=== PATIENT | male | born 1975 | race Caucasian/White ===

== ENCOUNTER 2017-08-30 21:39 | Emergency (ER) | payer BC ==
[~2017-08-30] VITALS: Ht 175.3 cm; Wt 82.0 kg
[2017-08-30 21:42] VITALS: BP 113/76; TEMP 36.8; Ht 175.3 cm; Wt 82.0 kg
--- NOTE | 2017-08-30 22:23 | DIAGNOSTIC IMAGING REPORT ---
R KNEE 3 VIEWS HISTORY: 42 years-old Male RIGHT WITH SUNRISE, EVAL PAIN acute right knee pain COMPARISON: None available TECHNIQUE: 3 views of the right knee FINDINGS: Mild medial soft tissue swelling about the knee without acute fracture, dislocation or significant degenerative changes. Minimal marginal spurring about the patella. Trace joint effusion. No opaque foreign body. IMPRESSION: Trace joint effusion and mild soft tissue swelling without fracture. The above report was generated using voice recognition software. It may contain grammatical, syntax or spelling errors. Electronically signed by: Sean Govea M.D. 08/30/2017 10:21 PM Dictated Date/Time: 08/30/2017 10:20 PM
--- NOTE | 2017-08-30 22:46 | EMERGENCY ROOM VISIT NOTE ---
ED Visit Note First contact with patient: 21:47 CHIEF COMPLAINT: Right knee injury this evening HISTORY OF PRESENT ILLNESS: Patient is an otherwise healthy 42-year-old male who presents emergency department a coming by his for evaluation of right knee pain after an injury that occurred earlier this evening. Patient states that he was wrestling with his 16-year-old son at practice, and the right knee twisted. He states he felt and heard crunching and popping, and had immediate onset of pain, primarily in the posterior aspect of the knee. He was able to bear weight initially, but it was painful. He did not take any medication, nor apply any ice. He rates his pain a 6/10 presently. He denies any prior right knee injuries or surgery. REVIEW OF SYSTEMS: Review of systems as per HPI. All other systems reviewed were negative. At least 6 systems reviewed. PMH: Electronic medical records are reviewed and summarized as above/below. See Problem List. SOCIAL HISTORY: Patient lives at home with his family. Employed. Non-smoker. PHYSICAL EXAM: Vital Signs: Reviewed Nurse's notes. MENTAL STATUS: Well- appearing 42-year-old male in no acute distress. KNEE: Examination of the right knee notes some mild soft tissue swelling. There is no peripatellar tenderness or crepitus. He has some discomfort to palpation over the LCL distribution and over the lateral joint line. Swelling in the popliteal space. No pain medially. He can extend fully, flexes to greater than 90. Anterior drawer with solid endpoint. Slight LCL laxity detected when compared with the unaffected side. The right lower extremity is neurovascularly intact. EMERGENCY DEPARTMENT COURSE: The patient was seen and assessed as above. He was offered medication for discomfort and ice, but declined. X-rays of the right knee were obtained noting no acute fracture. He was placed in a knee immobilizer, he has crutches. He would like to follow-up with [facility] for further care and evaluation. He was given a note to be out of work for 2 days to facilitate orthopedic follow-up. Differential diagnoses entertained included fracture, sprain, contusion, dislocation, meniscal ligamentous injury, among others. Medication reconciliation: I attest that I have personally reviewed the patient' s current medication list. Blood pressure screening : Patient was found to have normal blood pressure on screening and does not require follow-up. R KNEE 3 VIEWS HISTORY: 42 years-old Male RIGHT WITH SUNRISE, EVAL PAIN acute right knee pain COMPARISON: None available TECHNIQUE: 3 views of the right knee FINDINGS: Mild medial soft tissue swelling about the knee without acute fracture, dislocation or significant degenerative changes. Minimal marginal spurring about the patella. Trace joint effusion. No opaque foreign body. IMPRESSION: Trace joint effusion and mild soft tissue swelling without fracture. Problem List Surgical Problems: (1) History of appendectomy Status: Resolved Allergies Coded Allergies: No Known Allergies (Unverified , 08/30/17) Vital Signs Date Time Temp Pulse Resp B/P (MAP) Pulse Ox O2 Delivery O2 Flow Rate FiO2 08/30/17 22:57 75 94 08/30/17 21:42 36.8 81 18 113/76 95 Room Air Departure Information Impression Primary Impression: Right knee injury Referrals No Doctor, Assigned (PCP) Patient Instructions [facility] Additional Instructions Ibuprofen(Motrin, Advil): may be used for fever or pain. Use 600mg every six hours as needed. Take with food. Avoid using more than 2400mg in a 24 hour period. Do not use 2400mg per day for more than three consecutive days without physician direction. Prolonged inappropriate use can lead to stomach upset or ulcers. This is available over the counter and typically comes in 200mg tablets. (AND/OR) Acetaminophen(Tylenol): may be used for fever or pain. Use 1000mg every eight hours as needed. Avoid using more than 3000mg in a 24 hour period. This is available over the counter. Ice compresses for 20 minutes at a time four times daily for 2-3 days. Use the knee immobilizer and crutches as instructed. Rest and elevate your injury as discussed. Continue current medications. Return to the ER immediately for any numbness, tingling, severe pain, extreme swelling in the extremity or as needed. Follow-up with orthopedics on Saturday for further care and evaluation of your injury. Problem Qualifiers Primary Impression: Right knee injury Encounter type: initial encounter Qualified Codes: S89.91XA - Unspecified injury of right lower leg, initial encounter
[2017-08-30 22:57] VITALS: PULSE 75; O2SAT 94
== END 2017-08-30 22:58 | disposition home or self-care (01) ==
LOC: C.EDB 21:41 → C.EDD 22:58
DX: S89.91XA Unspecified injury of right lower leg, initial encounter (principal); M25.561 Pain in right knee; X50.9XXA Other and unspecified overexertion or strenuous movements or postures, initial encounter; Y93.72 Activity, wrestling